=== PATIENT | male | born 1945 | race Two or more races ===

== ENCOUNTER 2022-06-05 08:33 | Day surgery (SDC) | payer OTHER ==
[~2022-06-05] VITALS: Ht 165.1 cm; Wt 90.3 kg
[~2022-06-05 08:33] MED LIST: ENALAPRIL-HCTZ1 EACH PO; FARXIGA10 MG PO; FENOFIBRATE160 MG PO; FUSION PLUS CA1 EACH PO; GLIPIZIDE XL10 MG PO; JANUVIA25 MG PO; LEVO-T88 MCG PO; NORVASC2.5 MG PO; OMEGA-31000 MG PO; PREVACID15 M1 PO; ROSUVASTATIN CAL5 MG PO; TOPROL XL200 MG PO; ZYLOPRIM100 MG PO
== END 2022-06-05 19:30 | disposition home or self-care (01) ==
LOC: CIR.AMB 08:33
PROVIDERS: ATTEND Urology
DX: C67.9 Malignant neoplasm of bladder, unspecified (principal); Z20.822 Contact with and (suspected) exposure to COVID-19; I10 Essential (primary) hypertension; E78.5 Hyperlipidemia, unspecified; F17.210 Nicotine dependence, cigarettes, uncomplicated; N18.30 Chronic kidney disease, stage 3 unspecified; E11.9 Type 2 diabetes mellitus without complications; Z79.84 Long term (current) use of oral hypoglycemic drugs

== ENCOUNTER 2022-06-23 07:13 | Outpatient (CLI) | payer OTHER | END 2022-06-23 07:14 | disposition home or self-care (01) | LOC: NUCLEAR 07:13 | PROVIDERS: ATTEND Urology | DX: C67.9 Malignant neoplasm of bladder, unspecified (principal) | CPT/HCPCS: 78815; A9552 ==

== ENCOUNTER 2022-06-30 07:56 | Outpatient (CLI) | payer OTHER | END 2022-06-30 07:57 | disposition home or self-care (01) | LOC: NUCLEAR 07:56 | PROVIDERS: ATTEND Urology | DX: I25.10 Atherosclerotic heart disease of native coronary artery without angina pectoris (principal); R31.0 Gross hematuria; C67.9 Malignant neoplasm of bladder, unspecified | CPT/HCPCS: 78452; 93017; 93880; A9500; J0153 ==

== ENCOUNTER 2024-02-08 08:31 | Outpatient (CLI) | payer OTHER | END 2024-02-08 08:34 | disposition home or self-care (01) | LOC: NUCLEAR 08:31 | PROVIDERS: ATTEND Internal Medicine Hematology & Oncology | DX: C67.0 Malignant neoplasm of trigone of bladder (principal) | CPT/HCPCS: 78816; A9552 ==